=== PATIENT | male | born 1950 | race Caucasian/White ===

== ENCOUNTER 2017-01-06 10:57 | Outpatient (CLI) | payer BC | END 2017-01-06 10:58 | disposition home or self-care (01) | DX: G47.30 Sleep apnea, unspecified (principal); G47.8 Other sleep disorders; R06.83 Snoring ==

== ENCOUNTER 2017-01-31 21:31 | Outpatient (CLI) | payer BC | END 2017-01-31 21:32 | disposition home or self-care (01) | DX: G47.33 Obstructive sleep apnea (adult) (pediatric) (principal); G47.31 Primary central sleep apnea; G47.61 Periodic limb movement disorder ==

== ENCOUNTER 2017-02-12 13:18 | Outpatient (CLI) | payer BC | END 2017-02-12 13:19 | disposition home or self-care (01) | DX: G47.33 Obstructive sleep apnea (adult) (pediatric) (principal); G47.31 Primary central sleep apnea; G47.61 Periodic limb movement disorder ==

== ENCOUNTER 2017-03-06 20:55 | Outpatient (CLI) | payer BC | END 2017-03-06 20:56 | disposition home or self-care (01) | LOC: SC 20:55 | PROVIDERS: ATTEND Internal Medicine Pulmonary Disease | DX: G47.33 Obstructive sleep apnea (adult) (pediatric) (principal); G47.31 Primary central sleep apnea; G47.61 Periodic limb movement disorder | CPT/HCPCS: 95811 ==

== ENCOUNTER 2017-04-09 09:36 | Outpatient (CLI) | payer BC | END 2017-04-09 09:37 | disposition home or self-care (01) | LOC: SC 09:36 | PROVIDERS: ATTEND Nurse Practitioner Family | DX: G47.33 Obstructive sleep apnea (adult) (pediatric) (principal); G47.31 Primary central sleep apnea | CPT/HCPCS: 99212; 99214 ==

== ENCOUNTER 2017-05-26 08:45 | Outpatient (CLI) | payer BC | END 2017-05-26 08:46 | disposition home or self-care (01) | LOC: SC 08:45 | PROVIDERS: ATTEND Nurse Practitioner Family | DX: G47.33 Obstructive sleep apnea (adult) (pediatric) (principal) | CPT/HCPCS: 99212; 99214 ==

== ENCOUNTER 2017-09-09 15:15 | Outpatient (CLI) | payer BC | END 2017-09-09 15:16 | disposition home or self-care (01) | LOC: SC 15:15 | PROVIDERS: ATTEND Nurse Practitioner Family | DX: G47.33 Obstructive sleep apnea (adult) (pediatric) (principal) | CPT/HCPCS: 99212; 99214 ==

== ENCOUNTER 2018-02-03 11:23 | Outpatient (CLI) | payer MEDICARE, OTHER | END 2018-02-03 11:24 | disposition home or self-care (01) | LOC: SC 11:23 | PROVIDERS: ATTEND Internal Medicine Pulmonary Disease | DX: G47.33 Obstructive sleep apnea (adult) (pediatric) (principal) | CPT/HCPCS: 99213; G0463; 99212 ==

== ENCOUNTER 2019-02-16 11:11 | Outpatient (CLI) | payer MEDICARE, OTHER | END 2019-02-16 11:12 | disposition home or self-care (01) | LOC: SC 11:11 | PROVIDERS: ATTEND Internal Medicine Pulmonary Disease | DX: G47.33 Obstructive sleep apnea (adult) (pediatric) (principal); G47.31 Primary central sleep apnea | CPT/HCPCS: 99213; G0463; 99212 ==